=== PATIENT | male | born 1970 | race Caucasian/White ===

== ENCOUNTER 2023-06-13 20:17 | Emergency (ER) | payer MEDICAID ==
[~2023-06-13] VITALS: Ht 177.8 cm; Wt 122.0 kg
[~2023-06-13 20:17] MED LIST: CAR2T PO; IBUP-1984 PO; LEVA15HF4 IH; LOSA-415 PO; METF500T PO; MOME13HF12 IH; TEST200V16 IM; TRAM50TA2 PO
[2023-06-13 20:23] VITALS: TEMP 98
[2023-06-13] MEDS ORDERED: albuterol 2.5 MG/3 ML nebule NEB ONE (20:25)
[2023-06-13] MEDS ORDERED: ipratropium 0.5 MG/2.5ML nebule IH ONE (20:25)
[2023-06-13 20:44] VITALS: PULSE 79; RESP 16; O2SAT 94
[2023-06-13 20:53] VITALS: PULSE 91; RESP 18; O2SAT 99
[2023-06-13] MEDS ORDERED: CEFD300C3 PO (21:55)
[2023-06-13 22:04] VITALS: BP 105/77; PULSE 93; RESP 20; O2SAT 96
== END 2023-06-13 22:05 | disposition home or self-care (01) ==
LOC: ER 20:18
DX: J40 Bronchitis, not specified as acute or chronic (principal); Z20.822 Contact with and (suspected) exposure to COVID-19; Z88.5 Allergy status to narcotic agent; Z79.899 Other long term (current) drug therapy; Z79.1 Long term (current) use of non-steroidal anti-inflammatories (NSAID)
CPT/HCPCS: 36415; 71045; 87502; 87503; 87811; 94640; 94760; 99284

== ENCOUNTER 2023-09-05 21:14 | Emergency (ER) | payer MEDICAID, OTHER ==
[~2023-09-05] VITALS: Ht 180.3 cm; Wt 120.0 kg
[2023-09-05 21:24] VITALS: BP 142/61; PULSE 91; TEMP 98; O2SAT 98
[2023-09-05 22:46] VITALS: RESP 16
[2023-09-05] MEDS: ketorolac tromethamine 15mg/ml inj. IM ONE (22:46)
[2023-09-05 22:48] LABS: BASOPHILS % (AUTO) 0.6 % (0-1); EOSINOPHILS # (AUTO) 0.1 X10'3 (0-0.9); EOSINOPHILS % (AUTO) 1.5 % (0-6); HEMATOCRIT 40.6 % (42.0-52.0); HEMOGLOBIN 14.5 g/dl (14.0-17.9); LYMPHOCYTES # (AUTO) 3.7 X10'3 (1.1-4.8); LYMPHOCYTES % (AUTO) 53.8 % (21-51); MEAN CORPUSCULAR HEMOGLOBIN 33.7 PG (27.0-31.0); MEAN CORPUSCULAR HGB CONC 35.6 g/dL (33.0-36.5); MEAN CORPUSCULAR VOLUME 94.6 FL (78-98); MEAN PLATELET VOLUME 7.2 FL (7.4-10.4); MONOCYTES # (AUTO) 0.6 X10'3 (0-0.9); MONOCYTES % (AUTO) 8.8 % (2-12); NEUTROPHILS # (AUTO) 2.4 X10'3 (1.8-7.7); NEUTROPHILS % (AUTO) 35.3 % (42-75); PLATELET COUNT 288 X10'3 (140-440); RED CELL DISTRIBUTION WIDTH 13.5 % (11.5-14.5); WHITE BLOOD COUNT 6.8 X10'3 (4.5-11.0)
[2023-09-05 23:22] LABS: PLATELET ESTIMATE NORMAL; TOTAL CELLS COUNTED 100
[2023-09-05] MEDS ORDERED: NAPR-996 PO (23:28)
== END 2023-09-05 23:38 | disposition home or self-care (01) ==
LOC: ER 21:16
DX: M19.071 Primary osteoarthritis, right ankle and foot (principal); Z88.5 Allergy status to narcotic agent; Z79.899 Other long term (current) drug therapy; Z79.1 Long term (current) use of non-steroidal anti-inflammatories (NSAID)
CPT/HCPCS: 36415; 73610; 84550; 85007; 85025; 96372; 99284; J1885

== ENCOUNTER → 2023-09-28 | Outpatient (CLI) | payer BC, MEDICAID ==
[~2023-09-28] VITALS: Ht 180.3 cm; Wt 118.4 kg
[~2023-09-28] MED LIST changes: +NAPR-996 PO
[2023-09-28] MEDS: albuterol 2.5 MG/3 ML nebule NEB ONE (10:57)
[2023-09-28 10:59] VITALS: PULSE 98; RESP 16; O2SAT 95
== END | disposition home or self-care (01) ==
LOC: RT 10:08
PROVIDERS: ATTEND Physician Assistant
DX: J45.909 Unspecified asthma, uncomplicated (principal)
CPT/HCPCS: 94060; 94760; A6258; A6402

== ENCOUNTER 2023-10-22 21:32 | Emergency (ER) | payer OTHER ==
[~2023-10-22] VITALS: Ht 180.3 cm; Wt 120.5 kg
[2023-10-22 21:36] VITALS: TEMP 97.9
[2023-10-23 00:46] VITALS: BP 109/60; PULSE 81; RESP 17; O2SAT 95
== END 2023-10-23 00:58 | disposition left against medical advice (07) ==
LOC: ER 21:33
DX: R42 Dizziness and giddiness (principal); R11.0 Nausea; Z53.21 Procedure and treatment not carried out due to patient leaving prior to being seen by health care provider
CPT/HCPCS: 93005

== ENCOUNTER 2023-11-17 22:27 | Emergency (ER) | payer MEDICAID, OTHER ==
[~2023-11-17] VITALS: Ht 180.3 cm; Wt 118.2 kg
[2023-11-17 23:20] VITALS: O2SAT 97
[2023-11-17 23:22] LABS: BILIRUBIN,URINE NEGATIVE (Neg); CLARITY,URINE CLEAR (Clear); COLOR,URINE YELLOW (Yellow); GLUCOSE, URINE NEGATIVE (Neg); KETONES,URINE NEGATIVE (Neg); LEUKOCYTE ESTERASE ,URINE NEGATIVE (Neg); NITRITES, URINE NEGATIVE (Neg); OCCULT BLOOD,URINE NEGATIVE (Neg); PROTEIN,URINE NEGATIVE (Neg); UROBILINOGEN,URINE 0.2 E.U/dL (0.2-1.0)
[2023-11-17 23:27] LABS: UA COLLECTION TYPE URINAL
[2023-11-17 23:30] LABS: BASOPHILS # (AUTO) 0.1 X10'3 (0-0.2); BASOPHILS % (AUTO) 0.8 % (0-1); EOSINOPHILS # (AUTO) 0.3 X10'3 (0-0.9); EOSINOPHILS % (AUTO) 2.7 % (0-6); HEMATOCRIT 41.5 % (42.0-52.0); HEMOGLOBIN 14.5 g/dl (14.0-17.9); MEAN CORPUSCULAR HEMOGLOBIN 32.8 PG (27.0-31.0); MEAN CORPUSCULAR HGB CONC 34.8 g/dL (33.0-36.5); MEAN CORPUSCULAR VOLUME 94.3 FL (78-98); MEAN PLATELET VOLUME 7.2 FL (7.4-10.4); MONOCYTES # (AUTO) 1.6 X10'3 (0-0.9); MONOCYTES % (AUTO) 12.5 % (2-12); NEUTROPHILS # (AUTO) 7.6 X10'3 (1.8-7.7); PLATELET COUNT 348 X10'3 (140-440); RED CELL DISTRIBUTION WIDTH 12.8 % (11.5-14.5); WHITE BLOOD COUNT 12.6 X10'3 (4.5-11.0)
[2023-11-17 23:33] LABS: ALANINE AMINOTRANSFERASE 70 U/L (12-78); ALBUMIN 3.9 G/DL (3.4-5.0); ALKALINE PHOSPHATASE 77 IU/L (46-116); ANION GAP 11 (8-16); ASPARTATE AMINO TRANSFERASE 36 U/L (10-37); BILIRUBIN,TOTAL 1.2 MG/DL (0.1-1.0); BLOOD UREA NITROGEN 13 MG/DL (7-18); BUN/CREATININE RATIO 11.7 (10.0-20.0); CALCIUM 9.3 MG/DL (8.5-10.1); CHLORIDE 92 MMOL/L (99-107); CREATININE 1.11 MG/DL (0.60-1.10); GLUCOSE 124 MG/DL (70-104); SODIUM 133 MMOL/L (135-145); TOTAL CARBON DIOXIDE 30.2 MMOL/L (24-32); TOTAL PROTEIN 7.8 G/DL (6.4-8.2); eCRCL 83 ML/MIN; eGFR 70 ML/MIN
[2023-11-17 23:37] LABS: URINE AMPHETAMINE SCREEN NEGATIVE (Neg); URINE BARBITUATE SCREEN NEGATIVE (Neg); URINE BENZODIAZEPINES SCREEN NEGATIVE (Neg); URINE CANNABINOID SCREEN NEGATIVE (Neg); URINE COCAINE SCREEN NEGATIVE (Neg); URINE METHADONE SCREEN NEGATIVE (Neg); URINE OPIATE SCREEN NEGATIVE (Neg); URINE PHENCYCLIDINE SCREEN NEGATIVE (Neg)
[2023-11-17 23:38] LABS: POTASSIUM 2.9 MMOL/L (3.5-5.1)
[2023-11-17 23:59] VITALS: BP 133/73; PULSE 91; RESP 13; TEMP 97.9
== END 2023-11-18 00:01 | disposition home or self-care (01) ==
LOC: ER 22:28
DX: R42 Dizziness and giddiness (principal); Z88.8 Allergy status to other drugs, medicaments and biological substances; Z79.899 Other long term (current) drug therapy; Z79.1 Long term (current) use of non-steroidal anti-inflammatories (NSAID); Z79.84 Long term (current) use of oral hypoglycemic drugs
CPT/HCPCS: 36415; 80053; 80305; 81003; 85025; 99284

== ENCOUNTER 2024-06-27 08:18 | Emergency (ER) | payer OTHER ==
[~2024-06-27] VITALS: Ht 175.3 cm; Wt 115.8 kg
[~2024-06-27 08:18] MED LIST changes: +NAPR-1168 PO; -NAPR-996 PO
[2024-06-27 08:24] VITALS: BP 158/77; PULSE 88; TEMP 97.8; O2SAT 97
[2024-06-27 08:55] VITALS: RESP 18
== END 2024-06-27 09:28 | disposition home or self-care (01) ==
LOC: ER 08:19
DX: J22 Unspecified acute lower respiratory infection (principal); J45.909 Unspecified asthma, uncomplicated; Z88.5 Allergy status to narcotic agent; Z79.84 Long term (current) use of oral hypoglycemic drugs; Z79.1 Long term (current) use of non-steroidal anti-inflammatories (NSAID); Z79.899 Other long term (current) drug therapy
CPT/HCPCS: 71045; 99283

== ENCOUNTER 2024-07-07 09:14 | Emergency (ER) | payer OTHER ==
[~2024-07-07] VITALS: Ht 175.3 cm; Wt 116.7 kg
[2024-07-07 09:19] VITALS: BP 168/89; PULSE 111; TEMP 98.6; O2SAT 98
[2024-07-07 09:55] LABS: BASOPHILS % (AUTO) 0.8 % (0-1); EOSINOPHILS # (AUTO) 0.1 X10'3 (0-0.9); EOSINOPHILS % (AUTO) 2.2 % (0-6); HEMATOCRIT 44.7 % (42.0-52.0); HEMOGLOBIN 15.7 g/dl (14.0-17.9); LYMPHOCYTES # (AUTO) 2.4 X10'3 (1.1-4.8); LYMPHOCYTES % (AUTO) 45.8 % (21-51); MEAN CORPUSCULAR HEMOGLOBIN 31.8 PG (27.0-31.0); MEAN CORPUSCULAR HGB CONC 35.2 g/dL (33.0-36.5); MEAN CORPUSCULAR VOLUME 90.4 FL (78-98); MONOCYTES # (AUTO) 0.4 X10'3 (0-0.9); MONOCYTES % (AUTO) 8.5 % (2-12); NEUTROPHILS # (AUTO) 2.2 X10'3 (1.8-7.7); NEUTROPHILS % (AUTO) 42.7 % (42-75); PLATELET COUNT 322 X10'3 (140-440); RED BLOOD COUNT 4.95 X10'6 (4.70-6.10); RED CELL DISTRIBUTION WIDTH 13.3 % (11.5-14.5); WHITE BLOOD COUNT 5.2 X10'3 (4.5-11.0)
[2024-07-07 09:58] LABS: BILIRUBIN,URINE NEGATIVE (Neg); CLARITY,URINE CLEAR (Clear); COLOR,URINE YELLOW (Yellow); GLUCOSE, URINE NEGATIVE (Neg); KETONES,URINE NEGATIVE (Neg); LEUKOCYTE ESTERASE ,URINE NEGATIVE (Neg); NITRITES, URINE NEGATIVE (Neg); OCCULT BLOOD,URINE NEGATIVE (Neg); PROTEIN,URINE NEGATIVE (Neg); UROBILINOGEN,URINE 0.2 E.U/dL (0.2-1.0)
[2024-07-07 10:12] LABS: ALANINE AMINOTRANSFERASE 57 U/L (12-78); ALBUMIN/GLOBULIN RATIO 1.1 (1.1-1.5); ALKALINE PHOSPHATASE 84 IU/L (46-116); ANION GAP 7 (8-16); ASPARTATE AMINO TRANSFERASE 25 U/L (10-37); BILIRUBIN,TOTAL 0.9 MG/DL (0.1-1.0); BLOOD UREA NITROGEN 8 MG/DL (7-18); BUN/CREATININE RATIO 8.5 (10.0-20.0); CALCIUM 9.3 MG/DL (8.5-10.1); CHLORIDE 101 MMOL/L (99-107); CREATININE 0.94 MG/DL (0.60-1.10); GLUCOSE 216 MG/DL (70-104); LIPASE 65 U/L (16-77); SODIUM 138 MMOL/L (135-145); TOTAL CARBON DIOXIDE 29.7 MMOL/L (24-32); TOTAL PROTEIN 7.6 G/DL (6.4-8.2); eCRCL 91 ML/MIN; eGFR 84 ML/MIN
[2024-07-07 10:22] LABS: UA COLLECTION TYPE CLN CATCH MIDSTREAM
[2024-07-07] MEDS ORDERED: NAPR-56 PO (10:46)
[2024-07-07 10:54] VITALS: RESP 18
[2024-07-07] MEDS: ketorolac trometh 30MG/ML vial 30 MG/ML VIAL IM ONE (10:54)
== END 2024-07-07 11:11 | disposition home or self-care (01) ==
LOC: ER 09:15
DX: S39.012A Strain of muscle, fascia and tendon of lower back, initial encounter (principal); Z88.5 Allergy status to narcotic agent; Z79.1 Long term (current) use of non-steroidal anti-inflammatories (NSAID); Z79.899 Other long term (current) drug therapy; X58.XXXA Exposure to other specified factors, initial encounter; Y93.89 Activity, other specified; Y92.89 Other specified places as the place of occurrence of the external cause; Y99.8 Other external cause status
CPT/HCPCS: 36415; 80053; 81003; 83690; 85025; 96372; 99283; J1885

== ENCOUNTER 2024-09-05 19:17 | Emergency (ER) | payer OTHER ==
[~2024-09-05] VITALS: Ht 175.3 cm; Wt 94.3 kg
[2024-09-05] MEDS ORDERED: AMOX500C2 PO (20:33)
--- NOTE | 2024-09-05 20:34 | Physician Documentation ---
History of Present Illness ~ Chief Complaint: Head Pain Stated Complaint: EAR PAIN Time Seen by MD: 20:30 Primary Medical Doctor: MARIANNE HPI This 54-year-old male presents to the ED with a complaint of left-sided head pain and pronounced external ear pain. States that he thinks he has an ear infection. Adds that he does have some congestion as well denies any fevers or nausea vomiting Medication Reconciliation Allergies: Coded Allergies: codeine (Verified Allergy, Unknown, 09/05/24) Scheduled Amoxicillin Trihydrate* (Amoxicillin*), 1 CAP PO Q8H Doxazosin Mesylate* (Cardura*), 2 MG PO DAILY, (Reported) Ibuprofen* (Motrin*), 400 MG PO PRN, (Reported) Levalbuterol Tartrate* (Xopenex Inhaler*), 1 PUFF IH Q4H, (Reported) Losartan Potassium* (Cozaar*), 25 MG PO BID, (Reported) Metformin Hcl* (Glucophage*), 500 MG PO BID, (Reported) Mometasone/Formoterol (Dulera 100 Mcg/5 Mcg Inhaler), 13 GM IH BID, (Reported) Naproxen (Naproxen), 1 TAB PO Q12H Testosterone Cypionate (Testosterone Cypionate), 200 MG IM Q 3 WEEKS, (Reported) Tramadol HCl (Tramadol HCl), 50 MG PO PRN, (Reported) Past Medical History Alcohol Use: None Drug Use: none Review of Systems All Other Systems at this time: Reviewed and Negative ROS As stated above in the HPI, otherwise all systems are reviewed and negative. Physical Exam Vital Signs: Temperature: 96.8, Source: Temporal, Heart Rate: 100, Respiratory Rate: 15, BP: 132/66, Pulse Oximetry: 98, Weight: 94.350 Physical Exam General: Alert, no apparent distress. HEENT: PERRL, EOMI, no injection, moist mucous membranes. Tender left ear with erythema in the external auditory canal erythematous and reddened tympanic membrane with what appears to be in effusion. Drainage tympanic membrane intact Neck: Full range of motion. Psychiatric: Normal mood and affect. Skin: Normal color, warm and dry. No edema, no ecchymosis. Progress Results/Orders Results/Orders Completed Orders - CEDRICK BROWN NP Dexamethasone Inj (Decadron 10mg/Ml Inj) (09/05/24 20:34) Amoxicillin Capsule (Trimox Capsule) (09/05/24 20:35) Medications Received in ER Medications (Trade) Dose Ordered Sig/Jason Route PRN Reason Start Time Stop Time Status Last Admin Dose Admin (Decadron 10mg/ ml inj) 10 mg ONCE STAT PO 09/05/24 20:34 09/05/24 20:35 DC 09/05/24 20:46 10 MG (Trimox capsule) 500 mg ONCE ONCE PO 09/05/24 20:35 09/05/24 20:36 DC 09/05/24 20:46 500 MG Vital Signs 09/05/24 09/05/24 19:22 20:37 Temp 96.8 96.8 Pulse 100 88 Resp 15 16 B/P (MAP) 132/66 135/78 Pulse Ox 98 99 Medical Decision Making Findings Patient this patient empirically for otitis media and otitis externa. We will also give him a small dose of steroids while in the ED.. Patient nontoxic appearing we will start him on amoxicillin in the outpatient Differential Dx:Considerations: Include: BALTAZAR-Cluster, BALTAZAR-Migraine, BALTAZAR- Hypertensive, BALTAZAR-Muscular contraction, BALTAZAR-Post lumbar puncture, Carbon monoxide toxicity, Close head injuyr, CVA, Fever induced, Hemorrhage-Epidural, Hemorrhage-Intracerebral, Hemorrhage-Subarachnoid, Hemorrhage-Subdural, Mass lesion, Meningitis, Post-traumtic, Pseudotumor cerebri, Sinusitis, Temporal arteritis, Trigeminal neuralgia, Other Departure Disposition: 01 HOME / SELF CARE / HOMELESS Impression: Primary Impression: Otitis externa Additional Impression: Otitis media Discharge Instructions: Otitis Media, Adult, [id number] Referrals: NO PRIMARY CARE PROVIDER (PCP) Prescriptions Amoxicillin Trihydrate* (Amoxicillin*) 500 Mg Capsule 1 CAP PO Q8H for 10 Days, #30 CAP Prov: CEDRICK BROWN [employer] TECH[employer]IC[employer] 09/05/24 Signature Scribe Signature: e Attestation: The note accurately reflects work and decisions made by me.Cedrick Mosqueda NP 09/05/24 23:29 CEDRICK BROWN NP Sep 05, 2024 20:33
[2024-09-05 20:37] VITALS: BP 135/78; PULSE 88; RESP 16; TEMP 96.8; O2SAT 99
[2024-09-05] MEDS: amoxicillin 250mg capsule PO ONE (20:46)
[2024-09-05] MEDS: dexamethasone sod phosphate 10mg/ml inj PO STA (20:46)
== END 2024-09-05 20:49 | disposition home or self-care (01) ==
LOC: ER 19:18
DX: H60.92 Unspecified otitis externa, left ear (principal); H66.92 Otitis media, unspecified, left ear; Z88.5 Allergy status to narcotic agent
CPT/HCPCS: 99283; J1100

== ENCOUNTER 2024-12-31 21:18 | Emergency (ER) | payer OTHER ==
[~2024-12-31] VITALS: Ht 172.7 cm; Wt 99.5 kg
--- NOTE | 2024-12-31 23:25 | Physician Documentation ---
History of Present Illness ~ Chief Complaint: Ear Pain Stated Complaint: EAR PAIN Time Seen by MD: 23:10 Primary Medical Doctor: MARIANNE HPI Patient presents to the emergency room with right-sided ear pain onset today. He states he has had similar symptoms previously with ear infection in his left side. Denies any traumas. No fevers. Pain is exacerbated with light touched over his pinna that has well as his face and some of his scalp. Medication Reconciliation Allergies: Coded Allergies: codeine (Verified Allergy, Unknown, 09/05/24) Scheduled Doxazosin Mesylate* (Cardura*), 2 MG PO DAILY, (Reported) Ibuprofen* (Motrin*), 400 MG PO PRN, (Reported) Levalbuterol Tartrate* (Xopenex Inhaler*), 1 PUFF IH Q4H, (Reported) Losartan Potassium* (Cozaar*), 25 MG PO BID, (Reported) Metformin Hcl* (Glucophage*), 500 MG PO BID, (Reported) Mometasone/Formoterol (Dulera 100 Mcg/5 Mcg Inhaler), 13 GM IH BID, (Reported) Naproxen (Naproxen), 1 TAB PO Q12H Testosterone Cypionate (Testosterone Cypionate), 200 MG IM Q 3 WEEKS, (Reported) Tramadol HCl (Tramadol HCl), 50 MG PO PRN, (Reported) Past Medical History Alcohol Use: None Drug Use: none Review of Systems ROS All review of systems negative except as per HPI Physical Exam Vital Signs: Temperature: 97.8, Source: Temporal, Heart Rate: 98, Respiratory Rate: 18, BP: 161/99, Pulse Oximetry: 98, Weight: 99.500 Oxygen Flow Rate: 0 Physical Exam General: Patient is awake, alert, oriented x4 in no acute distress and well appearing.~ Head: Normocephalic and atraumatic. Eyes: Conjunctival normal. EOMI. PERRL. ENT: Mucous membranes moist. Tenderness to palpation with very light touch over right side of face pinna that has well as behind the ear. Tympanic membranes clear. No rash Neck: Supple, trachea is midline. Chest: Clear to auscultation bilaterally without rales, rhonchi, or wheezes. There is no accessory muscle use or retractions. Cardiac: RRR without murmurs, gallops, or rubs. Progress Results/Orders Results/Orders Vital Signs 12/31/24 21:23 Temp 97.8 Pulse 98 Resp 18 B/P (MAP) 161/99 Pulse Ox 98 O2 Flow Rate 0 Medical Decision Making Findings Patient presents to the emergency room with right-sided ear pain as per HPI. Differentials include but are not limited to otitis externa, otitis interna, mastoiditis, cellulitis, trigeminal neuralgia, shingles prodrome. Patient's vital signs are stable and he had not feel emergent labs or imaging is necessary. Given patient's symptoms have very light touch exacerbates I suspect either trigeminal neuralgia or shingles prodrome. Pain management discussed as well as ER precautions regarding rash formation. Departure Disposition: HOME / SELF CARE / HOMELESS Impression: Primary Impression: Neuralgia Condition: Fair Discharge Instructions: Trigeminal Neuralgia Departure Forms: Excuse form Work or School Excused From: Work Excuse beginning now through the following date: Jan 02, 2025 May Return but still avoid physical Activity from now until: Jan 02, 2025 May Return to full physical activity as of: Jan 02, 2025 Referrals: NO PRIMARY CARE PROVIDER (PCP) Signature Scribe Signature: No scribe Attestation: The note accurately reflects work and decisions made by me.Rigo Croft MD 12/31/24 23:25 RIGO CROFT MD Dec 31, 2024 23:25
[2024-12-31 23:32] VITALS: BP 158/92; PULSE 92; RESP 18; TEMP 98.6; O2SAT 99
== END 2024-12-31 23:33 | disposition home or self-care (01) ==
LOC: ER 21:18
DX: M79.2 Neuralgia and neuritis, unspecified (principal); Z88.5 Allergy status to narcotic agent
CPT/HCPCS: 99282

== ENCOUNTER 2025-04-22 14:44 | Outpatient (CLI) | payer OTHER ==
[2025-04-22] VITALS (21 sets, daily range): BP systolic 78–157; BP diastolic 27–98; PULSE 83–100
--- NOTE | 2025-04-22 20:46 | RADIOLOGY REPORT ---
CLINICAL HISTORY: PERSONAL HISTORY OF NICOTINE DEPENDENCE TECHNIQUE: CT of the chest was performed without intravenous contrast. This exam was performed according to our departmental dose optimization program. Up-to-date CT equipment and radiation dose reduction techniques are utilized as appropriate. COMPARISON: DI CHEST,SINGLE VIEW on DOS: 06/27/24, DI CHEST,SINGLE VIEW on DOS: 06/13/23 FINDINGS: Lower Neck: Unremarkable Axilla, Mediastinum and Lillian: Unremarkable. Heart and Great Vessels: Normal-sized heart without pericardial effusion. There are mitral annular calcifications. 3-vessel coronary artery calcifications up to Marked in the left anterior descending coronary artery. Central pulmonary arteries are normal caliber. Thoracic aorta is normal caliber containing Mild calcified plaque. Airway, Lungs and Pleura: The trachea and central airways are patent. Bronchial wall thickening. Sub 5 mm nodule in the right upper lobe adjacent to the minor fissure on series 2, image 113. Sub 5 mm right upper lobe pulmonary nodule on series 2, image 75. No airspace consolidation, pleural effusion, or pneumothorax. Upper Abdomen: There is a small hypodense lesion in segment 2 of the liver not optimally evaluated without contrast. No acute abnormality in the upper abdomen. Chest Wall and Osseous Structures: Healed posterior right 10th rib fracture. Multilevel thoracic spondylosis. No destructive osseous lesion. IMPRESSION: 1. Mild bronchial wall thickening which could be acute or chronic bronchitis. 2. Sub 5 mm nodules in the right upper lobe, nonspecific on initial exam. Lung rads Follow-up CT chest recommended in 1 year for re-evaluation. 3. There is 3-vessel calcified coronary artery disease up to Severe in the left anterior descending coronary artery. Radiation optimization: All CT scans at this facility use at least one of these dose optimization techniques: automated exposure control mA and/or kV adjustment per patient size (includes targeted exams where dose is matched to clinical indication) or iterative reconstruction.
== END 2025-04-22 23:59 | disposition home or self-care (01) ==
LOC: RAD 14:44
PROVIDERS: ATTEND Physician Assistant
DX: Z12.2 Encounter for screening for malignant neoplasm of respiratory organs (principal); R91.8 Other nonspecific abnormal finding of lung field; R55 Syncope and collapse; R42 Dizziness and giddiness; I34.81 Nonrheumatic mitral (valve) annulus calcification; I70.0 Atherosclerosis of aorta; I25.10 Atherosclerotic heart disease of native coronary artery without angina pectoris; Z87.891 Personal history of nicotine dependence
CPT/HCPCS: 71271; 93660

== ENCOUNTER 2025-04-25 17:14 | Emergency (ER) | payer OTHER ==
[~2025-04-25] VITALS: Ht 180.3 cm; Wt 120.4 kg
[2025-04-25 17:17] VITALS: BP 123/60; PULSE 86; RESP 18; O2SAT 98
--- NOTE | 2025-04-25 17:49 | RADIOLOGY REPORT ---
EXAM: RIGHT SHOULDER, COMPLETE (MIN 2 VWS) HISTORY: Shoulder Pain COMPARISON: None available. TECHNIQUE: 3 views of the right shoulder were obtained. FINDINGS: No acute fracture or dislocation is seen. No suspicious lytic or osseous lesion is identified. No significant arthritis of the acromioclavicular or glenohumeral joints. Calcific tendinopathy/tendinosis corresponding to the expected region of the supraspinatus tendon measuring approximately 7 mm. Otherwise, the overlying soft tissues are unremarkable. IMPRESSION: 1. No acute osseous abnormality. 2. Shoulder joint calcific tendinosis/tendinopathy as described.
[2025-04-25] MEDS ORDERED: TIZA4TAB11 PO (19:12)
[2025-04-25] MEDS ORDERED: IBUP-1984 PO (19:12)
--- NOTE | 2025-04-25 19:12 | Physician Documentation ---
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 Has complaint of pain to the right posterior shoulder and trapezium area that radiates to the right chest in the right shoulder. He is grossly neurologically intact and has excellent cap refill. No prior history of the same. Tetanus within 5 years?: Yes Medication Reconciliation Allergies: Coded Allergies: codeine (Verified Allergy, Unknown, 04/25/25) Scheduled Doxazosin Mesylate* (Cardura*), 2 MG PO DAILY, (Reported) Ibuprofen* (Motrin*), 400 MG PO PRN, (Reported) Ibuprofen* (Motrin*), 800 MG PO Q8H Levalbuterol Tartrate* (Xopenex Inhaler*), 1 PUFF IH Q4H, (Reported) Losartan Potassium* (Cozaar*), 25 MG PO BID, (Reported) Metformin Hcl* (Glucophage*), 500 MG PO BID, (Reported) Mometasone/Formoterol (Dulera 100 Mcg/5 Mcg Inhaler), 13 GM IH BID, (Reported) Naproxen (Naproxen), 1 TAB PO Q12H Testosterone Cypionate (Testosterone Cypionate), 200 MG IM Q 3 WEEKS, (Reported) Tizanidine Hcl (Zanaflex), 1 TAB PO Q8H Tramadol HCl (Tramadol HCl), 50 MG PO PRN, (Reported) Past Medical History Alcohol Use: None Drug Use: none Review of Systems All Other Systems at this time: Reviewed and Negative Musculoskeletal: Reports: see HPI Physical Exam Vital Signs: RN Vital Signs have been reviewed: Yes, Temperature: 97.9, Source: Oral, Heart Rate: 86, Respiratory Rate: 18, BP: 123/60, Pulse Oximetry: 98, Weight: 120.400 Oxygen Flow Rate: 0 General Appearance: alert, WD/WN, mild distress EENT: PERRL/EOMI Neck: normal inspection Respiratory: lungs clear Cardiovascular: normal peripheral pulses Gastrointestinal: non-tender Clavicle: normal inspection Shoulder: normal inspection Shoulder Right trapezium muscular spasm Elbow/Forearm: normal inspection Distal Function: normal pulse Skin: normal color Lymphatic: normal inspection Neurologic: oriented x4 Psychiatric: normal mood/affect Progress Results/Orders Results/Orders Vital Signs 04/25/25 04/25/25 17:17 19:16 Temp 97.9 97.9 Pulse 86 Resp 18 B/P (MAP) 123/60 Pulse Ox 98 O2 Flow Rate 0 Medical Decision Making Additional information obtaine: family Findings 55-year-old male with a trapezium strain secondary to a work injury or lifting a box. He is grossly neurologically intact x-rays with incidental finding of the calcific tendinitis noncontributory to his current pain. Recommendations are for antispasmodic and anti-inflammatory with worker's injury follow up in the morning for consideration of work modification. Discharged grossly neurologically intact without focal neuro deficit or loss of function. Differential Dx:Considerations: Include: AC separation, Adhesive capsulitis, arthritis, Bicipital tendonitis, Calcific tendonitis, Cervical disc disease, Contusion, Dislocation, Fracture: Humerus, Fracture: Scapula, Fracture: Clavicle, Gallbladder Disease, Hematoma, Impingement syndrome, Myocardial infarction, Neurovascular Injury, Rotator cuff injury, SC dislocation, Sprain, Subacromial bursitis, other Departure Disposition: HOME / SELF CARE / HOMELESS Impression: Primary Impression: Trapezius muscle strain Qualified Codes: S46.811A - Strain of other muscles, fascia and tendons at shoulder and upper arm level, right arm, initial encounter Condition: Improved Discharge Instructions: Trigger Point Injection Additional Instructions: Examination tonight is consistent with a trapezium strain causing trigger point spasm. Please begin medications as directed and keep your follow up appointment with [facility]'s injury [facility] in the morning for definitive management I have modified work. Thank you for visiting emergency department of [facility]. Departure Forms: Excuse form Work or School Excused From: Work Excuse beginning now through the following date: Apr 28, 2025 Referrals: NO PRIMARY CARE PROVIDER (PCP) Prescriptions Ibuprofen* (Motrin*) 400 Mg Tablet 800 MG PO Q8H for 10 Days, #30 TAB Prov: CHRISTO PRICE 04/25/25 Tizanidine Hcl (ZANAFLEX) 4 Mg Tablet 1 TAB PO Q8H for pain for 30 Days, #30 TAB 0 Refills Prov: CHRISTO PRICE 04/25/25 Education Educated: Patient Educated regarding: diagnosis, treatment, prognosis, need for follow up Signature Scribe Signature: .. Attestation: . CHRISTO PRICE [facility] Apr 25, 2025 19:12
[2025-04-25 19:16] VITALS: TEMP 97.9
== END 2025-04-25 19:23 | disposition home or self-care (01) ==
LOC: ER 17:15
DX: S29.012A Strain of muscle and tendon of back wall of thorax, initial encounter (principal); Z88.5 Allergy status to narcotic agent; Z79.899 Other long term (current) drug therapy; Z79.84 Long term (current) use of oral hypoglycemic drugs; X58.XXXA Exposure to other specified factors, initial encounter; Y93.89 Activity, other specified; Y92.89 Other specified places as the place of occurrence of the external cause; Y99.0 Civilian activity done for income or pay
CPT/HCPCS: 73030; 99283